=== PATIENT | male | born 1945 | race Caucasian/White ===

== ENCOUNTER 2018-02-24 20:04 | Emergency (ER) | payer BC, OTHER ==
[2018-02-24 20:15] VITALS: BP 170/89; PULSE 78; TEMP 98.1; BMI 29.9
--- NOTE | 2018-02-24 20:19 | PDOC ---
History of Present Illness - General History Source: Patient Exam Limitations: No Limitations <Radha Mann Khushi - Last Filed: 02/24/18 20:29> - General History Source: Patient Exam Limitations: No Limitations - History of Present Illness Initial Comments: 02/24/18 20:30 The patient is a 72 year old male with no significant past medical history who presents to the ED with rash since earlier today. Patient states he developed pain to his right upper back on . Since then he states his symptoms progressively worsened and he developed a rash on his right upper back earlier today. Denies fever or chills. Denies any other symptoms. PAST MEDICAL HISTORY: no significant history PAST SURGICAL HISTORY: no significant history FAMILY HISTORY: no pertinent history SOCIAL HISTORY: Pt lives with family and is employed. MEDICATIONS: reviewed ALLERGIES: As per nursing notes General: No fevers or chills, no weakness, no weight loss HEENT: No change in vision. No sore throat,. No ear pain CardioVascular: No chest pain or shortness of breath Respiratory:No cough, or wheezing. Gastrointestinal: no nausea, vomiting, diarrhea or constipation, No rectal bleeding Genitourinary: No dysuria, hematuria, or frequency Musculoskeletal: + upper back pain. No joint or muscle swelling Neurologic: No headache, vertigo, dizziness or loss of consciousness Psychiatric: nor depression Skin: + rash. No easy bruising Endocrine: no increased thirst or abnormal weight change Allergic: no skin or latex allergy All other systems reviewed and normal GENERAL: The patient is awake, alert, and fully oriented, in no acute distress. HEAD: Normal with no signs of trauma. EYES: Pupils equal, round and reactive to light, extraocular movements intact, sclera anicteric, conjunctiva clear. EXTREMITIES: Normal range of motion, no edema. NEUROLOGICAL: Normal speech, normal gait. PSYCH: Normal mood, normal affect. SKIN: Right upper back; dermatomal distribution consistent with shingles no evidence of secondary infection. <Paresh Garcia - Last Filed: 02/24/18 20:31> - General Chief Complaint: Pain Stated Complaint: SHINGLES Time Seen by Provider: 02/24/18 20:19 Past History - Past Medical History Anemia: No Asthma: No Cardiac Disorders: No CVA: No COPD: No Diabetes: No Thyroid Disease: No - Surgical History Orthopedic Surgery: No - Suicide/Smoking/Psychosocial Hx Smoking History: Never smoked Have you smoked in the past 12 months: No Information on smoking cessation initiated: No Hx Alcohol Use: No Drug/Substance Use Hx: No Substance Use Type: None <Radha Mann I - Last Filed: 02/24/18 20:29> <Paresh Garcia - Last Filed: 02/24/18 20:31> - Past Medical History Allergies/Adverse Reactions: Allergies Allergy/AdvReac Type Severity Reaction Status Date / Time No Known Drug Allergies Allergy Verified 02/24/18 20:06 Home Medications: Ambulatory Orders Acyclovir [Zovirax -] 200 mg PO 5XD #50 capsule 02/24/18 *Physical Exam - Vital Signs Last Vital Signs Temp Pulse Resp BP Pulse Ox 98.1 F 78 16 170/89 97 02/24/18 20:09 02/24/18 20:09 02/24/18 20:09 02/24/18 20:09 02/24/18 20:09 <Radha Mann I - Last Filed: 02/24/18 20:29> - Vital Signs Last Vital Signs Temp Pulse Resp BP Pulse Ox 98.1 F 78 16 170/89 97 02/24/18 20:09 02/24/18 20:09 02/24/18 20:09 02/24/18 20:09 02/24/18 20:09 <Paresh Garcia - Last Filed: 02/24/18 20:31> *DC/Admit/Observation/Transfer - Discharge Dispostion Decision to Admit order: No <Radha Mann I - Last Filed: 02/24/18 20:29> - Attestations Scribe Attestion: 02/24/18 20:30 Documentation prepared by Paresh Garcia, acting as medical case manager for Radha Mann MD <Paresh Garcia - Last Filed: 02/24/18 20:31> Diagnosis at time of Disposition: Shingles Qualifiers: Herpes zoster complications: without complications Qualified Code(s): B02.9 - Zoster without complications - Discharge Dispostion Disposition: HOME Condition at time of disposition: Stable - Prescriptions Prescriptions: Acyclovir [Zovirax -] 200 mg PO 5XD #50 capsule - Referrals Referrals: Astrid Banks MD [Primary Care Provider] - - Patient Instructions Additional Instructions: Take acyclovir 5 times a day for 10 days. Return to the emergency department immediately with ANY new, persistent or worsening symptoms. Continue any medications as previously prescribed by your physician. You should follow up with your primary doctor as soon as possible regarding today's emergency department visit. . Please make sure your doctor reviews the results of your emergency evaluation. Thank you for coming to the Emergency Department today for your care. It was a pleasure to see you today. Please note that your evaluation is INCOMPLETE until you follow-up with your doctor. - Post Discharge Activity
[2018-02-24] MEDS ORDERED: ACYCLOVIR 200 MG CAPSULE PO ONE (20:29)
[2018-02-24] MEDS ORDERED: ACYCLOVIR 400 MG TABLET ONE ×2 (21:02→21:04)
[2018-02-24] MEDS ORDERED: ACYCLOVIR 400 MG TABLET PO ONE (21:04)
== END 2018-02-24 21:11 | disposition home or self-care (01) ==
LOC: FER 20:04
DX: B02.9 Zoster without complications (principal)
CPT/HCPCS: 99281-25

== ENCOUNTER 2018-10-25 06:35 | Day surgery (SDC) | payer BC, OTHER ==
[2018-10-24 14:34] VITALS: BMI 32.5
[2018-10-25 08:34] VITALS: TEMP 97.5
[2018-10-25 09:17] VITALS: BP 136/75; PULSE 69
--- NOTE | 2018-10-28 17:11 | PATH ---
Surgical Pathology Report Patient Name: LISSETTE WARD [facility]. Rec. #: [id number] /Age/Gender: 1945 (Age: 73) / M Account: [id number] Location: [facility]-ENDOSCOPY Taken: 10/25/2018 Received: 10/25/2018 Reported: 10/28/2018 Physicians: Anu Claudio M.D. Specimen(s) Received A: PROXIMAL TRANSVERSE COLON B: CECAL POLYPS Clinical History Change in bowel habits, screening Postoperative diagnosis: Diverticulosis, polyps Final Diagnosis A. PROXIMAL TRANSVERSE COLON, POLYP, BIOPSY: POLYPOID COLONIC MUCOSA WITH MARKED INTRAEPITHELIAL AND LAMINA PROPRIA EOSINOPHILIC INFILTRATE (UP TO 100 EOSINOPHILS/HPF), INCLUDING FOCAL EOSINOPHILIC MICROABSCESSES. SEE COMMENT. B. CECAL POLYPS, BIOPSY: HYPERPLASTIC POLYP. POLYPOID COLONIC MUCOSA WITH MARKED INTRAEPITHELIAL AND LAMINA PROPRIA EOSINOPHILIC INFILTRATE (UP TO 130 EOSINOPHILS/HPF), INCLUDING FOCAL EOSINOPHILIC MICROABSCESSES. SEE COMMENT. Comment: There are increased intraepithelial and lamina propria eosinophils (up to 100 (A) and 130 (B) eosinophils/HPF) including focal microabscesses. 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 This finding is non-specific, Differential diagnoses include: parasitic infection, food allergy, medication injury, Crohn's disease, and connective tissue disorders. Suggest clinical, endoscopic, and serologic correlation. Electronically Signed Sheron Mcclure M.D. Gross Description A. Received in formalin, labeled "biopsy proximal transverse colon polyp" are 2 gibbs, irregular portions of soft tissue measuring 0.2 and 0.4 cm. in greatest dimension. The specimens are submitted in toto in one cassette. B. Received in formalin, labeled "biopsy cecal polyps" are 5 gibbs, irregular portions of soft tissue ranging from 0.1-0.4 cm. in greatest dimension. The specimens are submitted in toto in one cassette. 10/25/201810/25/2018
== END 2018-10-25 09:15 | disposition home or self-care (01) ==
LOC: JASU-ENDO 06:35
PROVIDERS: ATTEND Internal Medicine Gastroenterology
PROC: 0DBL8ZX Excision of Transverse Colon, Via Natural or Artificial Opening Endoscopic, Diagnostic (ICD-10-PCS; 2018-10-25)
PROC: 0DBH8ZX Excision of Cecum, Via Natural or Artificial Opening Endoscopic, Diagnostic (ICD-10-PCS; principal; 2018-10-25 08:00)
DX: Z12.11 Encounter for screening for malignant neoplasm of colon (principal); D12.0 Benign neoplasm of cecum; D12.3 Benign neoplasm of transverse colon; K57.30 Diverticulosis of large intestine without perforation or abscess without bleeding; K64.8 Other hemorrhoids
CPT/HCPCS: 88305-TC

== ENCOUNTER 2020-02-15 18:03 | Inpatient (IN) | payer BC, OTHER ==
[2020-02-15] MEDS ORDERED: DEXAMETHASONE SOD PHOSPHATE 10 MG/1 ML VIAL IVPUSH ONE (18:48)
[2020-02-15] MEDS ORDERED: DEXAMETHASONE SOD PHOSPHATE 10 MG/1 ML VIAL ONE (19:21)
[2020-02-15 19:41] LABS: BASO % 0.2 % (0-2.0); EOS % 2.4 % (0-4.5); HEMATOCRIT 40.8 % (35.4-49); HEMOGLOBIN 13.6 GM/dL (11.7-16.9); LYMPH % 12.2 % (8-40); MCH 29.7 pg (25.7-33.7); MCHC 33.4 g/dl (32.0-35.9); MEAN PLT VOLUME 8.9 fl (7.5-11.1); MONO % 9.4 % (3.8-10.2); NEUT % 75.8 % (42.8-82.8); PLATELET COUNT 193 K/MM3 (134-434); RBC 4.59 M/mm3 (4.00-5.60); RDW 13.2 % (11.9-15.9); WHITE BLOOD COUNT 10.7 K/mm3 (4.0-10.0)
[2020-02-15 19:43] LABS: VENOUS BASE EXCESS -1.1 mmol/L (-2-2); VENOUS PCO2 50.5 mmHg (38-52); VENOUS PH 7.322 (7.310-7.410)
[2020-02-15 20:02] LABS: POTASSIUM 4.3 mmol/L (3.5-5.1)
[2020-02-15 20:04] LABS: ALBUMIN 3.4 g/dl (3.4-5.0)
[2020-02-15 20:05] LABS: BLOOD UREA NITROGEN 21.2 mg/dL (7-18)
[2020-02-15 20:07] LABS: BILIRUBIN,DIRECT 0.6 mg/dL (0.0-0.2)
[2020-02-15 20:08] LABS: CREATININE 1.4 mg/dL (0.55-1.3)
[2020-02-15 20:09] LABS: TOT PROT 7.5 g/dl (6.4-8.2)
[2020-02-15] MEDS ORDERED: SODIUM CHLORIDE 0.9% 500 ML INFUS.BAG IV ONE (21:21)
[2020-02-15] MEDS ORDERED: ALBUTEROL SO4 HFA INHALER IH PRN (22:36)
[2020-02-15] MEDS ORDERED: AZITHROMYCIN IVPB 500 MG/250 ML BAG IVPB ONE ×2 (23:02→23:31)
[2020-02-15] MEDS ORDERED: CEFTRIAXONE 1 GM in DEXTROSE 5%-WATER - 50 ML IVPB ONE (23:02)
[2020-02-15] MEDS ORDERED: DEXTROSE 5%-NORMAL SALINE 500 ML IV ONE (23:03)
[2020-02-15 23:07] LABS: INR 1.08 (0.83-1.09)
[2020-02-15 23:10] LABS: ACTIVATED PTT 29.3 SECONDS (25.2-36.5)
[2020-02-15] MEDS ORDERED: DEXTROSE 5%-LACTATED RINGERS 1,000 ML IV SCH (23:15)
[2020-02-15] MEDS ORDERED: CEFTRIAXONE 1 GM/50 ML BAG ONE (23:31)
[2020-02-16 00:33] LABS: EPI CELLS 5 /uL (0-25.1); HYALINE CASTS 5 /uL (0-3.1); PH,URINE 5.5 (5.0-8.0); URINE APPEARANCE CLEAR; URINE BACTERIA 26 /uL (0-1359); URINE BILIRUBIN 1+ (NEGATIVE); URINE COLOR DK YELLOW; URINE GLUCOSE (UA) NEGATIVE (NEGATIVE); URINE KETONE TRACE (NEGATIVE); URINE LEUK ESTERASE NEGATIVE (NEGATIVE); URINE NITRITE NEGATIVE (NEGATIVE); URINE PROTEIN 1+ (NEGATIVE); URINE RBC 13 /uL (0-23.9); URINE WBC 6 /uL (0-25.8)
[2020-02-16 07:29] LABS: BASO % 0.1 % (0-2.0); HEMATOCRIT 38.3 % (35.4-49); HEMOGLOBIN 12.8 GM/dL (11.7-16.9); LYMPH % 8.9 % (8-40); MCH 29.2 pg (25.7-33.7); MCHC 33.5 g/dl (32.0-35.9); MEAN CELL VOLUME 87.3 fl (80-96); MEAN PLT VOLUME 8.8 fl (7.5-11.1); MONO % 2.6 % (3.8-10.2); NEUT % 88.4 % (42.8-82.8); PLATELET COUNT 201 K/MM3 (134-434); RBC 4.39 M/mm3 (4.00-5.60); WHITE BLOOD COUNT 6.7 K/mm3 (4.0-10.0)
[2020-02-16 07:35] LABS: POTASSIUM 4.9 mmol/L (3.5-5.1)
[2020-02-16 07:37] LABS: CALCIUM 8.9 mg/dL (8.5-10.1)
[2020-02-16 07:38] LABS: BLOOD UREA NITROGEN 16.8 mg/dL (7-18); MAGNESIUM 2.7 mg/dL (1.8-2.4)
[2020-02-16 07:41] LABS: CREATININE 0.9 mg/dL (0.55-1.3)
[2020-02-16 07:43] LABS: BILIRUBIN,TOTAL 0.6 mg/dL (0.2-1); TOT PROT 7.1 g/dl (6.4-8.2)
[2020-02-16] MEDS ORDERED: DEXAMETHASONE SOD PHOSPHATE 10 MG/1 ML VIAL ONE (09:16)
[2020-02-16] MEDS ORDERED: ENOXAPARIN NA (PORCINE) 40 MG/0.4 ML DISP.SYRIN SQ ONE (09:16)
[2020-02-16] MEDS: ENOXAPARIN NA (PORCINE) 40 MG/0.4 ML DISP.SYRIN SQ SCH (09:32)
[2020-02-16] MEDS: DEXAMETHASONE SOD PHOSPHATE 10 MG/1 ML VIAL IVPUSH SCH (09:32)
[2020-02-16 16:50] VITALS: BMI 29.5
[2020-02-16] MEDS ORDERED: FLU VACCINE (FLULAVAL) PF 60 MCG/0.5 ML SYRINGE 2020-2021 IM ONE (16:50)
[2020-02-16] MEDS: PANTOPRAZOLE 40 MG TABLET PO SCH (17:36)
[2020-02-17] MEDS ORDERED: AZITHROMYCIN IVPB 500 MG/250 ML BAG IVPB SCH (10:00)
[2020-02-17] MEDS ORDERED: CEFTRIAXONE 1 GM in DEXTROSE 5%-WATER - 50 ML IVPB SCH (10:00)
[2020-02-17] MEDS ORDERED: DEXTROSE 5%-WATER - 50 ML IVPB ONE (10:23)
[2020-02-17] MEDS ORDERED: cefTRIAXone SODIUM 1 GM VIAL ONE (10:23)
[2020-02-17] MEDS: ENOXAPARIN NA (PORCINE) 40 MG/0.4 ML DISP.SYRIN SQ SCH (10:32)
[2020-02-17] MEDS: DEXAMETHASONE SOD PHOSPHATE 10 MG/1 ML VIAL IVPUSH SCH (10:32)
[2020-02-17] MEDS: PANTOPRAZOLE 40 MG TABLET PO SCH (10:33)
[2020-02-17] MEDS ORDERED: POLYETHYLENE GLYCOL 3350 119 GM BTL PO PRN (13:20)
[2020-02-17] MEDS: ASCORBIC ACID 500 MG TABLET (FP) PO SCH (21:25)
[2020-02-17] MEDS: FAMOTIDINE 20 MG TABLET PO SCH (21:25)
[2020-02-18] MEDS: ENOXAPARIN NA (PORCINE) 40 MG/0.4 ML DISP.SYRIN SQ SCH (10:09)
[2020-02-18] MEDS: DEXAMETHASONE SOD PHOSPHATE 10 MG/1 ML VIAL IVPUSH SCH (10:09)
[2020-02-18] MEDS: ZINC SULFATE 220 MG CAPSULE (FP) PO SCH (10:09)
[2020-02-18] MEDS: CHOLECALCIFEROL (VIT D3) 1,000 UNIT (25 MCG) TABLET PO SCH (10:10)
[2020-02-18] MEDS: PANTOPRAZOLE 40 MG TABLET PO SCH (10:10)
[2020-02-18] MEDS: FAMOTIDINE 20 MG TABLET PO SCH ×2 (10:10→21:48)
[2020-02-18] MEDS: ASCORBIC ACID 500 MG TABLET (FP) PO SCH ×2 (10:10→21:48)
[2020-02-18 17:03] LABS: POTASSIUM 4.7 mmol/L (3.5-5.1)
[2020-02-18 17:06] LABS: ALBUMIN 2.8 g/dl (3.4-5.0); BLOOD UREA NITROGEN 17.1 mg/dL (7-18)
[2020-02-18 17:09] LABS: CREATININE 0.9 mg/dL (0.55-1.3)
[2020-02-18 17:10] LABS: BILIRUBIN,TOTAL 0.4 mg/dL (0.2-1)
[2020-02-18 17:12] LABS: TOT PROT 6.5 g/dl (6.4-8.2)
[2020-02-18 17:58] LABS: HEMATOCRIT 37.4 % (35.4-49); HEMOGLOBIN 12.4 GM/dL (11.7-16.9); MCH 29.4 pg (25.7-33.7); MCHC 33.2 g/dl (32.0-35.9); MEAN CELL VOLUME 88.5 fl (80-96); MEAN PLT VOLUME 8.5 fl (7.5-11.1); PLATELET COUNT 266 K/MM3 (134-434); RBC 4.23 M/mm3 (4.00-5.60); RDW 13.1 % (11.9-15.9)
[2020-02-18] MEDS ORDERED: REMDESIVIR 200 MG in SODIUM CHLORIDE 210 ML IVPB ONE (19:00)
[2020-02-19 07:03] LABS: HEMATOCRIT 35.9 % (35.4-49); HEMOGLOBIN 11.7 GM/dL (11.7-16.9); MCH 28.7 pg (25.7-33.7); MCHC 32.8 g/dl (32.0-35.9); MEAN CELL VOLUME 87.6 fl (80-96); MEAN PLT VOLUME 8.6 fl (7.5-11.1); PLATELET COUNT 259 K/MM3 (134-434); RBC 4.09 M/mm3 (4.00-5.60); RDW 13.3 % (11.9-15.9); WHITE BLOOD COUNT 11.5 K/mm3 (4.0-10.0)
[2020-02-19 07:30] LABS: CALCIUM 8.8 mg/dL (8.5-10.1)
[2020-02-19 07:31] LABS: ALBUMIN 2.6 g/dl (3.4-5.0); BLOOD UREA NITROGEN 18.8 mg/dL (7-18)
[2020-02-19 07:34] LABS: CREATININE 0.7 mg/dL (0.55-1.3)
[2020-02-19 07:36] LABS: BILIRUBIN,TOTAL 0.4 mg/dL (0.2-1); TOT PROT 5.8 g/dl (6.4-8.2)
[2020-02-19] MEDS: DEXAMETHASONE SOD PHOSPHATE 10 MG/1 ML VIAL IVPUSH SCH (09:06)
[2020-02-19] MEDS: ENOXAPARIN NA (PORCINE) 40 MG/0.4 ML DISP.SYRIN SQ SCH (09:07)
[2020-02-19] MEDS: ASCORBIC ACID 500 MG TABLET (FP) PO SCH ×2 (09:07→21:45)
[2020-02-19] MEDS: ZINC SULFATE 220 MG CAPSULE (FP) PO SCH (09:07)
[2020-02-19] MEDS: FAMOTIDINE 20 MG TABLET PO SCH ×2 (09:07→21:45)
[2020-02-19] MEDS: PANTOPRAZOLE 40 MG TABLET PO SCH (09:07)
[2020-02-19] MEDS: CHOLECALCIFEROL (VIT D3) 1,000 UNIT (25 MCG) TABLET PO SCH (09:08)
[2020-02-19] MEDS: REMDESIVIR 100 MG in SODIUM CHLORIDE 230 ML IVPB SCH (17:39)
[2020-02-20 07:02] LABS: POTASSIUM 4.8 mmol/L (3.5-5.1)
[2020-02-20 07:07] LABS: ALBUMIN 2.6 g/dl (3.4-5.0); BLOOD UREA NITROGEN 17.7 mg/dL (7-18); CALCIUM 8.4 mg/dL (8.5-10.1)
[2020-02-20 07:11] LABS: BILIRUBIN,TOTAL 0.5 mg/dL (0.2-1); CREATININE 0.9 mg/dL (0.55-1.3)
[2020-02-20 07:12] LABS: TOT PROT 6.3 g/dl (6.4-8.2)
[2020-02-20] MEDS: ASCORBIC ACID 500 MG TABLET (FP) PO SCH ×2 (09:45→21:41)
[2020-02-20] MEDS: CHOLECALCIFEROL (VIT D3) 1,000 UNIT (25 MCG) TABLET PO SCH (09:45)
[2020-02-20] MEDS: ENOXAPARIN NA (PORCINE) 40 MG/0.4 ML DISP.SYRIN SQ SCH (09:45)
[2020-02-20] MEDS: ZINC SULFATE 220 MG CAPSULE (FP) PO SCH (09:45)
[2020-02-20] MEDS: FAMOTIDINE 20 MG TABLET PO SCH ×2 (09:45→21:41)
[2020-02-20] MEDS: PANTOPRAZOLE 40 MG TABLET PO SCH (09:45)
[2020-02-20] MEDS: DEXAMETHASONE SOD PHOSPHATE 10 MG/1 ML VIAL IVPUSH SCH (09:46)
[2020-02-20] MEDS ORDERED: PT OWN MED DRAWER 7, Y5N ONE (16:55)
[2020-02-20] MEDS: REMDESIVIR 100 MG in SODIUM CHLORIDE 230 ML IVPB SCH (18:07)
[2020-02-21 07:49] LABS: POTASSIUM 4.5 mmol/L (3.5-5.1)
[2020-02-21 07:52] LABS: CALCIUM 8.5 mg/dL (8.5-10.1)
[2020-02-21 07:53] LABS: ALBUMIN 2.6 g/dl (3.4-5.0); BLOOD UREA NITROGEN 20.7 mg/dL (7-18)
[2020-02-21 07:56] LABS: CREATININE 0.9 mg/dL (0.55-1.3)
[2020-02-21 07:57] LABS: BILIRUBIN,TOTAL 0.8 mg/dL (0.2-1)
[2020-02-21] MEDS ORDERED: PT OWN MED DRAWER 7, Y5N ONE ×2 (08:57→14:56)
[2020-02-21] MEDS: ZINC SULFATE 220 MG CAPSULE (FP) PO SCH (09:36)
[2020-02-21] MEDS: FAMOTIDINE 20 MG TABLET PO SCH ×2 (09:36→21:20)
[2020-02-21] MEDS: ENOXAPARIN NA (PORCINE) 40 MG/0.4 ML DISP.SYRIN SQ SCH (09:36)
[2020-02-21] MEDS: DEXAMETHASONE SOD PHOSPHATE 10 MG/1 ML VIAL IVPUSH SCH (09:36)
[2020-02-21] MEDS: ASCORBIC ACID 500 MG TABLET (FP) PO SCH ×2 (09:36→21:20)
[2020-02-21] MEDS: PANTOPRAZOLE 40 MG TABLET PO SCH (09:36)
[2020-02-21] MEDS: CHOLECALCIFEROL (VIT D3) 1,000 UNIT (25 MCG) TABLET PO SCH (09:37)
[2020-02-21] MEDS: REMDESIVIR 100 MG in SODIUM CHLORIDE 230 ML IVPB SCH (17:29)
[2020-02-22 08:07] LABS: POTASSIUM 4.3 mmol/L (3.5-5.1)
[2020-02-22 08:50] LABS: CALCIUM 8.7 mg/dL (8.5-10.1)
[2020-02-22 08:51] LABS: ALBUMIN 2.8 g/dl (3.4-5.0); BLOOD UREA NITROGEN 21.9 mg/dL (7-18)
[2020-02-22 08:54] LABS: CREATININE 0.9 mg/dL (0.55-1.3)
[2020-02-22 08:55] LABS: BILIRUBIN,TOTAL 0.4 mg/dL (0.2-1); TOT PROT 5.8 g/dl (6.4-8.2)
[2020-02-22] MEDS: DEXAMETHASONE SOD PHOSPHATE 10 MG/1 ML VIAL IVPUSH SCH (10:11)
[2020-02-22] MEDS: CHOLECALCIFEROL (VIT D3) 1,000 UNIT (25 MCG) TABLET PO SCH (10:11)
[2020-02-22] MEDS: ZINC SULFATE 220 MG CAPSULE (FP) PO SCH (10:12)
[2020-02-22] MEDS: APIXABAN 5 MG TABLET PO SCH ×2 (10:12→21:16)
[2020-02-22] MEDS: ASCORBIC ACID 500 MG TABLET (FP) PO SCH ×2 (10:12→21:16)
[2020-02-22] MEDS: FAMOTIDINE 20 MG TABLET PO SCH ×2 (10:12→21:16)
[2020-02-22] MEDS: PANTOPRAZOLE 40 MG TABLET PO SCH (10:12)
[2020-02-22] MEDS: REMDESIVIR 100 MG in SODIUM CHLORIDE 230 ML IVPB SCH (17:30)
[2020-02-23 07:25] LABS: CALCIUM 7.9 mg/dL (8.5-10.1); POTASSIUM 4.7 mmol/L (3.5-5.1)
[2020-02-23 07:26] LABS: ALBUMIN 2.8 g/dl (3.4-5.0); BLOOD UREA NITROGEN 21.3 mg/dL (7-18)
[2020-02-23 07:30] LABS: BILIRUBIN,TOTAL 0.5 mg/dL (0.2-1)
[2020-02-23 07:31] LABS: TOT PROT 6.3 g/dl (6.4-8.2)
[2020-02-23 09:42] VITALS: PULSE 89
[2020-02-23] MEDS: PANTOPRAZOLE 40 MG TABLET PO SCH (09:43)
[2020-02-23] MEDS: ASCORBIC ACID 500 MG TABLET (FP) PO SCH (09:43)
[2020-02-23] MEDS: APIXABAN 5 MG TABLET PO SCH (09:43)
[2020-02-23] MEDS: ZINC SULFATE 220 MG CAPSULE (FP) PO SCH (09:43)
[2020-02-23] MEDS: DEXAMETHASONE SOD PHOSPHATE 10 MG/1 ML VIAL IVPUSH SCH (09:46)
[2020-02-23] MEDS: CHOLECALCIFEROL (VIT D3) 1,000 UNIT (25 MCG) TABLET PO SCH (09:47)
[2020-02-23] MEDS: FAMOTIDINE 20 MG TABLET PO SCH (12:24)
[2020-02-23 13:29] VITALS: BP 142/84; TEMP 97.9
== END 2020-02-23 15:27 | disposition home or self-care (01) | DRG 177 ==
LOC: JER 18:03 → JERBED 21:20 → J4S 02-16 15:02
PROVIDERS: ADMIT Internal Medicine; ATTEND Internal Medicine
PROC: 8E0ZXY6 Isolation (ICD-10-PCS; 2020-02-15)
PROC: XW033E5 Introduction of Remdesivir Anti-infective into Peripheral Vein, Percutaneous Approach, New Technology Group 5 (ICD-10-PCS; principal; 2020-02-18)
DX: U07.1 COVID-19 (principal); J12.89 Other viral pneumonia; J96.01 Acute respiratory failure with hypoxia; N17.9 Acute kidney failure, unspecified; I45.10 Unspecified right bundle-branch block; N40.0 Benign prostatic hyperplasia without lower urinary tract symptoms; K57.90 Diverticulosis of intestine, part unspecified, without perforation or abscess without bleeding; I10 Essential (primary) hypertension; E78.00 Pure hypercholesterolemia, unspecified; J45.909 Unspecified asthma, uncomplicated
CPT/HCPCS: 36415; 71045-TC-FY; 80053; 81003; 82248; 82550; 82728; 82803; 83036; 83605; 83615; 83735; 84484; 85025; 85027; 85379; 85610; 85730; 86140; 86850; 86900; 86901; 87040; 87070; 87086; 87205; 87804; 87899; 93005; 93010; 94761; 99285-25; C9803; J1100; U0003

== ENCOUNTER 2023-01-09 12:01 | Inpatient (IN) | payer BC, MEDICARE ==
[2023-01-09 12:15] VITALS: BMI 31.9
[2023-01-09 13:10] LABS: INR 1.58 (0.83-1.09); PROTHROMBIN TIME (PATIENT) 18.2 SEC (9.7-13.0)
[2023-01-09 13:11] LABS: HEMATOCRIT 17.2 % (35.4-49); MCHC 31.2 g/dl (32.0-35.9); MEAN PLT VOLUME 8.9 fl (7.5-11.1); PLATELET COUNT 159.8 10^3/uL (134-434); RBC 2.33 10^6/uL (4.00-5.60); RDW 20.2 % (11.9-15.9); WHITE BLOOD COUNT 7.9 10^3/uL (4.0-10.8)
[2023-01-09 13:13] LABS: ALBUMIN 3.9 g/dl (3.4-5.0); BILIRUBIN,TOTAL 0.6 mg/dl (0.2-1); BLOOD UREA NITROGEN 19.6 mg/dl (7-18); CALCIUM 8.5 mg/dl (8.5-10.1); CREATININE 1.5 mg/dl (0.6-1.3); POTASSIUM 4.2 mmol/L (3.5-5.1); SGOT/AST 16.5 U/L (15-37); SGPT/ALT 13.2 U/L (7-52); TOT PROT 6.3 g/dl (6.4-8.2)
[2023-01-09 13:16] LABS: HEMOGLOBIN 5.4 G/dL (11.7-16.9)
[2023-01-09] MEDS: LACTATED RINGERS SOLUTION 1,000 ML/1,000 ML INFUS.BAG IV STA ×2 (13:19→13:28)
[2023-01-09 13:41] LABS: PLATELET ESTIMATE ADEQUATE
[2023-01-09 16:19] LABS: N-TERMINAL BNP 676.6 pg/ml (5-450)
[2023-01-09 18:31] VITALS: RESP 18
[2023-01-09] MEDS: PANTOPRAZOLE SODIUM 40 MG VIAL IVPUSH SCH (21:19)
[2023-01-09] MEDS: ATORVASTATIN CA 40 MG TABLET (FP) PO SCH (21:19)
[2023-01-10] MEDS: LACTATED RINGERS SOLUTION 1,000 ML/1,000 ML INFUS.BAG IV SCH ×2 (04:04→16:15)
[2023-01-10 08:22] LABS: HEMATOCRIT 21.8 % (35.4-49); MCH 24.4 pg (25.7-33.7); MCHC 31.2 g/dl (32.0-35.9); MEAN CELL VOLUME 78.1 fl (80-96); MEAN PLT VOLUME 8.7 fl (7.5-11.1); PLATELET COUNT 124.5 10^3/uL (134-434); RBC 2.79 10^6/uL (4.00-5.60); RDW 21.6 % (11.9-15.9); WHITE BLOOD COUNT 6.7 10^3/uL (4.0-10.8)
[2023-01-10 08:33] LABS: ALBUMIN 3.6 g/dl (3.4-5.0); BILIRUBIN,TOTAL 1.2 mg/dl (0.2-1); BLOOD UREA NITROGEN 15.8 mg/dl (7-18); CALCIUM 8.3 mg/dl (8.5-10.1); CREATININE 1.1 mg/dl (0.6-1.3); PHOSPHOROUS 3.03 (2.5-4.9); POTASSIUM 3.8 mmol/L (3.5-5.1); SGOT/AST 15.2 U/L (15-37); SGPT/ALT 12.2 U/L (7-52); TOT PROT 5.8 g/dl (6.4-8.2)
[2023-01-10 08:36] LABS: HEMOGLOBIN 6.8 G/dL (11.7-16.9)
[2023-01-10] MEDS: PANTOPRAZOLE SODIUM 40 MG VIAL IVPUSH SCH ×2 (09:44→21:13)
[2023-01-10 18:04] LABS: HEMOGLOBIN 7.7 G/dL (11.7-16.9); MCH 24.5 pg (25.7-33.7); MEAN CELL VOLUME 76.8 fl (80-96); MEAN PLT VOLUME 8.3 fl (7.5-11.1); PLATELET COUNT 128.7 10^3/uL (134-434); RBC 3.13 10^6/uL (4.00-5.60); RDW 23.9 % (11.9-15.9); WHITE BLOOD COUNT 7.3 10^3/uL (4.0-10.8)
[2023-01-10] MEDS: CLOPIDOGREL BISULFATE 75 MG TABLET (FP) PO SCH (18:22)
[2023-01-10] MEDS: ATORVASTATIN CA 40 MG TABLET (FP) PO SCH (21:13)
[2023-01-11 08:25] LABS: HEMATOCRIT 23.9 % (35.4-49); HEMOGLOBIN 7.7 G/dL (11.7-16.9); MCH 24.3 pg (25.7-33.7); MCHC 32.1 g/dl (32.0-35.9); MEAN CELL VOLUME 75.9 fl (80-96); PLATELET COUNT 129.5 10^3/uL (134-434); RBC 3.15 10^6/uL (4.00-5.60); RDW 22.9 % (11.9-15.9); WHITE BLOOD COUNT 7.5 10^3/uL (4.0-10.8)
[2023-01-11 09:24] LABS: CALCIUM 8.2 mg/dl (8.5-10.1); POTASSIUM 3.9 mmol/L (3.5-5.1)
[2023-01-11] MEDS: PANTOPRAZOLE SODIUM 40 MG VIAL IVPUSH SCH (09:25)
[2023-01-11] MEDS: CLOPIDOGREL BISULFATE 75 MG TABLET (FP) PO SCH (09:25)
[2023-01-11] MEDS ORDERED: METOPROLOL TARTRATE 25 MG TABLET (FP) PO SCH (10:00)
[2023-01-11 14:09] VITALS: BP 131/67; PULSE 98; TEMP 98.4
== END 2023-01-11 16:10 | disposition home or self-care (01) | DRG 812 ==
LOC: FER 12:01 → FM/S 14:10
PROVIDERS: ADMIT Internal Medicine; ATTEND Internal Medicine
PROC: 30233N1 Transfusion of Nonautologous Red Blood Cells into Peripheral Vein, Percutaneous Approach (ICD-10-PCS; principal; 2023-01-10)
DX: D64.9 Anemia, unspecified (principal); I25.10 Atherosclerotic heart disease of native coronary artery without angina pectoris; R55 Syncope and collapse; Z95.5 Presence of coronary angioplasty implant and graft; N40.0 Benign prostatic hyperplasia without lower urinary tract symptoms; E78.5 Hyperlipidemia, unspecified; R07.9 Chest pain, unspecified
CPT/HCPCS: 0241U-QW; 36415; 36430; 71045-TC-FY; 80048; 80053; 81003; 81015; 82607; 82728; 82746; 83010; 83540; 83550; 83735; 83880; 84100; 84439; 84443; 84484; 85025; 85027; 85045; 85384; 85610; 85730; 86922; 87086; 93005; 99285-25; P9058

== ENCOUNTER 2023-02-08 05:13 | Day surgery (SDC) | payer BC ==
[2023-02-05 16:18] VITALS: BMI 29.9
[2023-02-08 13:20] VITALS: TEMP 97.1
[2023-02-08 14:04] VITALS: BP 150/81; PULSE 67; RESP 17
== END 2023-02-08 14:05 | disposition home or self-care (01) ==
LOC: JASU-ENDO 05:13
PROVIDERS: ATTEND Internal Medicine Gastroenterology
PROC: 0DJ08ZZ Inspection of Upper Intestinal Tract, Via Natural or Artificial Opening Endoscopic (ICD-10-PCS; 2023-02-08)
PROC: 0DJD8ZZ Inspection of Lower Intestinal Tract, Via Natural or Artificial Opening Endoscopic (ICD-10-PCS; principal; 2023-02-08 12:45)
DX: D50.9 Iron deficiency anemia, unspecified (principal); K63.5 Polyp of colon; K57.30 Diverticulosis of large intestine without perforation or abscess without bleeding; I10 Essential (primary) hypertension

== ENCOUNTER 2023-12-18 07:37 | Inpatient (IN) | payer BC, OTHER ==
[2023-12-18 08:39] LABS: BASO % 0.5 % (0-2.0); HEMATOCRIT 25.5 % (35.4-49); HEMOGLOBIN 8.5 GM/dL (11.7-16.9); LYMPH % 17.9 % (8-40); MCH 30.2 pg (25.7-33.7); MCHC 33.3 g/dl (32.0-35.9); MEAN CELL VOLUME 90.7 fl (80-96); MEAN PLT VOLUME 7.9 fl (7.5-11.1); MONO % 8.1 % (3.8-10.2); NEUT % 57.5 % (42.8-82.8); PLATELET COUNT 157 10^3/uL (134-434); RBC 2.82 M/mm3 (4.00-5.60); RDW 13.9 % (11.9-15.9); WHITE BLOOD COUNT 6.9 K/mm3 (4.0-10.0)
[2023-12-18] MEDS: SODIUM CHLORIDE 0.9% 500 ML INFUS.BAG IV ONE (08:39)
[2023-12-18 08:53] LABS: POTASSIUM 4.1 mmol/L (3.5-5.1)
[2023-12-18 08:55] LABS: ALBUMIN 3.2 g/dl (3.4-5.0); BLOOD UREA NITROGEN 13.7 mg/dL (7-18); CALCIUM 8.6 mg/dL (8.5-10.1); MAGNESIUM 2.2 mg/dL (1.8-2.4)
[2023-12-18 08:58] LABS: CREATININE 0.9 mg/dL (0.55-1.3)
[2023-12-18 09:00] LABS: BILIRUBIN,TOTAL 0.3 mg/dL (0.2-1); TOT PROT 5.8 g/dl (6.4-8.2)
[2023-12-18 09:32] LABS: BILIRUBIN,DIRECT 0.1 mg/dL (0.0-0.2)
[2023-12-18 09:57] LABS: INR 0.99 (0.83-1.09); PROTHROMBIN TIME (PATIENT) 11.2 SEC (9.7-13.0)
[2023-12-18 09:59] LABS: ACTIVATED PTT 26.7 SECONDS (25.2-36.5)
[2023-12-18 12:35] LABS: HIV INTERPRETATION NEGATIVE (NEGATIVE)
[2023-12-18] MEDS: PANTOPRAZOLE SODIUM 40 MG VIAL IVPUSH SCH (12:46)
[2023-12-18] MEDS: DEXTROSE 5%-NORMAL SALINE 1,000 ML IV SCH (12:59)
[2023-12-18 13:53] VITALS: BMI 30.9
[2023-12-19] MEDS: ACETAMINOPHEN 1000 MG/100 ML BAG IVPB ONE (06:11)
[2023-12-19] MEDS: LISINOPRIL 20 MG TABLET PO SCH (09:54)
[2023-12-19] MEDS: METOPROLOL TARTRATE 50 MG TABLET (FP) PO SCH (09:54)
[2023-12-19 13:09] LABS: BASO % 0.8 % (0-2.0); EOS % 12.7 % (0-4.5); HEMATOCRIT 19.5 % (35.4-49); LYMPH % 17.3 % (8-40); MCH 30.4 pg (25.7-33.7); MCHC 32.9 g/dl (32.0-35.9); MEAN CELL VOLUME 92.4 fl (80-96); MEAN PLT VOLUME 7.8 fl (7.5-11.1); MONO % 7.2 % (3.8-10.2); PLATELET COUNT 146 10^3/uL (134-434); RBC 2.11 M/mm3 (4.00-5.60); RDW 13.9 % (11.9-15.9); WHITE BLOOD COUNT 5.9 K/mm3 (4.0-10.0)
[2023-12-19 13:12] LABS: HEMOGLOBIN 6.4 GM/dL (11.7-16.9)
[2023-12-19 13:16] LABS: INR 1.04 (0.83-1.09); PROTHROMBIN TIME (PATIENT) 11.7 SEC (9.7-13.0)
[2023-12-19] MEDS: PANTOPRAZOLE SODIUM 40 MG VIAL IVPUSH SCH (14:41)
[2023-12-19] MEDS: PEG 3350/NA SULF BICARB CL/KCL 4000 ML SOLN.RECON PO ONE (17:58)
[2023-12-19] MEDS: BISACODYL 5 MG TABLET.DR (FP) PO ONE (17:58)
[2023-12-19] MEDS: ONDANSETRON 4 MG/2 ML VIAL IVPUSH SCH (19:37)
[2023-12-19] MEDS: DEXTROSE 5%-NORMAL SALINE 1,000 ML IV SCH (19:59)
[2023-12-19] MEDS: CHLORHEXIDINE GLUCONATE 4% CLEANSER FOR DECOLONIZATION TP SCH (21:29)
[2023-12-19] MEDS: MUPIROCIN 2% TOPICAL OINTMENT FOR DECOLONIZATION NS SCH (21:29)
[2023-12-19] MEDS ORDERED: ATORVASTATIN CA 40 MG TABLET (FP) PO SCH (22:00)
[2023-12-20 00:03] LABS: BASO % 0.5 % (0-2.0); EOS % 8.9 % (0-4.5); LYMPH % 18.6 % (8-40); MCH 29.7 pg (25.7-33.7); MCHC 33.3 g/dl (32.0-35.9); MEAN CELL VOLUME 89.1 fl (80-96); MEAN PLT VOLUME 8.1 fl (7.5-11.1); MONO % 6.7 % (3.8-10.2); NEUT % 65.3 % (42.8-82.8); PLATELET COUNT 142 10^3/uL (134-434); RBC 3.03 M/mm3 (4.00-5.60); RDW 14.4 % (11.9-15.9); WHITE BLOOD COUNT 7.7 K/mm3 (4.0-10.0)
[2023-12-20 00:50] LABS: CALCIUM 8.3 mg/dL (8.5-10.1)
[2023-12-20 00:51] LABS: BLOOD UREA NITROGEN 10.7 mg/dL (7-18)
[2023-12-20 00:53] LABS: CREATININE 0.8 mg/dL (0.55-1.3)
[2023-12-20 07:48] LABS: BASO % 0.6 % (0-2.0); EOS % 11.3 % (0-4.5); HEMATOCRIT 23.9 % (35.4-49); HEMOGLOBIN 8.2 GM/dL (11.7-16.9); LYMPH % 19.7 % (8-40); MCH 30.3 pg (25.7-33.7); MCHC 34.2 g/dl (32.0-35.9); MEAN CELL VOLUME 88.5 fl (80-96); MONO % 7.6 % (3.8-10.2); NEUT % 60.8 % (42.8-82.8); PLATELET COUNT 132 10^3/uL (134-434); RDW 14.9 % (11.9-15.9); WHITE BLOOD COUNT 6.4 K/mm3 (4.0-10.0)
[2023-12-20 07:50] LABS: INR 1.07 (0.83-1.09); PROTHROMBIN TIME (PATIENT) 12.1 SEC (9.7-13.0)
[2023-12-20 08:00] LABS: POTASSIUM 3.6 mmol/L (3.5-5.1)
[2023-12-20 08:08] LABS: CALCIUM 8.5 mg/dL (8.5-10.1)
[2023-12-20 08:12] LABS: CREATININE 0.8 mg/dL (0.55-1.3)
[2023-12-20] MEDS: METOPROLOL TARTRATE 50 MG TABLET (FP) PO SCH (10:00)
[2023-12-21 07:46] LABS: BASO % 0.6 % (0-2.0); HEMATOCRIT 23.9 % (35.4-49); HEMOGLOBIN 8.1 GM/dL (11.7-16.9); LYMPH % 18.3 % (8-40); MCH 30.4 pg (25.7-33.7); MCHC 33.7 g/dl (32.0-35.9); MEAN CELL VOLUME 90.2 fl (80-96); MEAN PLT VOLUME 7.7 fl (7.5-11.1); MONO % 8.4 % (3.8-10.2); NEUT % 61.7 % (42.8-82.8); PLATELET COUNT 148 10^3/uL (134-434); RBC 2.65 M/mm3 (4.00-5.60); WHITE BLOOD COUNT 5.2 K/mm3 (4.0-10.0)
[2023-12-21 08:27] LABS: POTASSIUM 3.8 mmol/L (3.5-5.1)
[2023-12-21 08:29] LABS: CALCIUM 8.3 mg/dL (8.5-10.1)
[2023-12-21 08:30] LABS: ALBUMIN 2.9 g/dl (3.4-5.0); BLOOD UREA NITROGEN 8.3 mg/dL (7-18)
[2023-12-21 08:34] LABS: CREATININE 0.9 mg/dL (0.55-1.3); PHOSPHOROUS 3.1 mg/dL (2.5-4.9)
[2023-12-21 08:35] LABS: BILIRUBIN,TOTAL 0.9 mg/dL (0.2-1); TOT PROT 5.2 g/dl (6.4-8.2)
[2023-12-21] MEDS ORDERED: MUPIROCIN 2% TOPICAL OINTMENT FOR DECOLONIZATION NS SCH (22:00)
[2023-12-21] MEDS ORDERED: CHLORHEXIDINE GLUCONATE 4% CLEANSER FOR DECOLONIZATION TP SCH (22:00)
[2023-12-22 06:46] VITALS: TEMP 98.2
[2023-12-22 09:27] LABS: BASO % 0.5 % (0-2.0); EOS % 12.4 % (0-4.5); HEMATOCRIT 27.6 % (35.4-49); HEMOGLOBIN 9.3 GM/dL (11.7-16.9); LYMPH % 16.5 % (8-40); MCH 30.5 pg (25.7-33.7); MCHC 33.6 g/dl (32.0-35.9); MEAN CELL VOLUME 90.8 fl (80-96); MEAN PLT VOLUME 7.9 fl (7.5-11.1); MONO % 7.6 % (3.8-10.2); PLATELET COUNT 209 10^3/uL (134-434); RBC 3.04 M/mm3 (4.00-5.60); RDW 14.6 % (11.9-15.9); WHITE BLOOD COUNT 7.1 K/mm3 (4.0-10.0)
[2023-12-22 09:54] VITALS: BP 118/68; PULSE 100; RESP 16
[2023-12-22] MEDS: METOPROLOL TARTRATE 50 MG TABLET (FP) PO SCH (10:02)
== END 2023-12-22 15:16 | disposition home or self-care (01) | DRG 378 ==
LOC: JER 07:37 → JERBED 09:06 → J7W 10:03 → OBSVTOIN 12-19 12:11 → JICU 12-19 15:00 → J5S 12-21 20:15
PROVIDERS: ADMIT Internal Medicine; ATTEND Internal Medicine
PROC: 30233N1 Transfusion of Nonautologous Red Blood Cells into Peripheral Vein, Percutaneous Approach (ICD-10-PCS; 2023-12-19)
PROC: 0DJD8ZZ Inspection of Lower Intestinal Tract, Via Natural or Artificial Opening Endoscopic (ICD-10-PCS; 2023-12-20)
PROC: 0DJ08ZZ Inspection of Upper Intestinal Tract, Via Natural or Artificial Opening Endoscopic (ICD-10-PCS; principal; 2023-12-20 13:30)
DX: K57.91 Diverticulosis of intestine, part unspecified, without perforation or abscess with bleeding (principal); D62 Acute posthemorrhagic anemia; I10 Essential (primary) hypertension; K92.2 Gastrointestinal hemorrhage, unspecified; E78.5 Hyperlipidemia, unspecified; K40.90 Unilateral inguinal hernia, without obstruction or gangrene, not specified as recurrent; N40.0 Benign prostatic hyperplasia without lower urinary tract symptoms; K44.9 Diaphragmatic hernia without obstruction or gangrene; I25.10 Atherosclerotic heart disease of native coronary artery without angina pectoris; K57.90 Diverticulosis of intestine, part unspecified, without perforation or abscess without bleeding; I45.10 Unspecified right bundle-branch block; D64.9 Anemia, unspecified; Z95.5 Presence of coronary angioplasty implant and graft
CPT/HCPCS: 0241U-QW; 36415; 36430; 71045-TC-FY; 74174-TC; 80048; 80053; 82248; 82272; 82728; 83010; 83540; 83550; 83615; 83735; 84100; 84484; 85025; 85610; 85730; 86803; 86850; 86900; 86901; 86922; 87389; 93005; 93010; 93306-TC; 97116-GP; 97161-GP; 99285-25; G0378; J0131; P9058; Q9967

== ENCOUNTER 2024-06-20 09:12 | Inpatient (IN) | payer BC ==
[2024-06-20 10:48] LABS: BASO % 0.5 % (0-2.0); EOS % 4.6 % (0-4.5); HEMATOCRIT 35.8 % (35.4-49); LYMPH % 12.3 % (8-40); MCH 30.9 pg (25.7-33.7); MCHC 33.5 g/dl (32.0-35.9); MEAN CELL VOLUME 92.3 fl (80-96); MEAN PLT VOLUME 8.4 fl (7.5-11.1); MONO % 6.2 % (3.8-10.2); NEUT % 76.4 % (42.8-82.8); PLATELET COUNT 136 10^3/uL (134-434); RBC 3.88 M/mm3 (4.00-5.60); RDW 14.7 % (11.9-15.9); WHITE BLOOD COUNT 8.4 K/mm3 (4.0-10.0)
[2024-06-20 10:57] LABS: INR 1.47 (0.83-1.09); PROTHROMBIN TIME (PATIENT) 16.2 SEC (9.7-13.0)
[2024-06-20 11:00] LABS: ACTIVATED PTT 25.5 SECONDS (25.2-36.5)
[2024-06-20] MEDS ORDERED: METOPROLOL TARTRATE 25 MG TABLET (FP) ONE (11:25)
[2024-06-20] MEDS ORDERED: METOPROLOL TARTRATE 5 MG/5 ML VIAL ONE ×2 (11:25→11:42)
[2024-06-20 11:28] LABS: POTASSIUM 5.4 mmol/L (3.5-5.1)
[2024-06-20 11:31] LABS: CALCIUM 8.7 mg/dL (8.5-10.1)
[2024-06-20 11:33] LABS: BLOOD UREA NITROGEN 17.4 mg/dL (7-18)
[2024-06-20 11:35] LABS: CREATININE 1.3 mg/dL (0.55-1.3)
[2024-06-20 11:37] LABS: BILIRUBIN,TOTAL 1.9 mg/dL (0.2-1); TOT PROT 5.7 g/dl (6.4-8.2)
[2024-06-20] MEDS: METOPROLOL TARTRATE 5 MG/5 ML VIAL IVPUSH ONE ×2 (11:39→11:49)
[2024-06-20] MEDS: METOPROLOL TARTRATE 25 MG TABLET (FP) PO ONE (11:39)
[2024-06-20] MEDS: SODIUM CHLORIDE 0.9% 500 ML INFUS.BAG IV ONE (11:40)
[2024-06-20 13:02] LABS: HIV INTERPRETATION NEGATIVE (NEGATIVE)
[2024-06-20 16:39] VITALS: BMI 30.4
[2024-06-20] MEDS: D5-1/2NS+20 MEQ KCL - 20 MEQ/1,000 ML INFUS.BAG IV SCH (17:06)
[2024-06-20 19:34] LABS: BASO % 0.7 % (0-2.0); EOS % 13.6 % (0-4.5); HEMATOCRIT 33.4 % (35.4-49); HEMOGLOBIN 10.9 GM/dL (11.7-16.9); MCH 30.5 pg (25.7-33.7); MCHC 32.5 g/dl (32.0-35.9); MEAN PLT VOLUME 8.5 fl (7.5-11.1); MONO % 9.6 % (3.8-10.2); NEUT % 54.1 % (42.8-82.8); PLATELET COUNT 131 10^3/uL (134-434); RBC 3.56 M/mm3 (4.00-5.60); RDW 14.6 % (11.9-15.9)
[2024-06-20] MEDS: DEXTROSE 5%-0.45% SALINE 1,000 ML IV SCH (20:42)
[2024-06-20] MEDS: ATORVASTATIN CA 40 MG TABLET (FP) PO SCH (21:06)
[2024-06-20] MEDS: METOPROLOL TARTRATE 5 MG/5 ML VIAL IVPUSH PRN (23:36)
[2024-06-21 07:23] LABS: HEMOGLOBIN 10.3 GM/dL (11.7-16.9); MCH 30.6 pg (25.7-33.7); MCHC 33.1 g/dl (32.0-35.9); MEAN CELL VOLUME 92.5 fl (80-96); MEAN PLT VOLUME 8.5 fl (7.5-11.1); PLATELET COUNT 127 10^3/uL (134-434); RBC 3.35 M/mm3 (4.00-5.60); RDW 14.6 % (11.9-15.9); WHITE BLOOD COUNT 8.1 K/mm3 (4.0-10.0)
[2024-06-21 07:44] LABS: ALBUMIN 2.7 g/dl (3.4-5.0); BLOOD UREA NITROGEN 12.3 mg/dL (7-18); CALCIUM 8.4 mg/dL (8.5-10.1)
[2024-06-21 07:49] LABS: BILIRUBIN,TOTAL 1.1 mg/dL (0.2-1); TOT PROT 5.2 g/dl (6.4-8.2)
[2024-06-21] MEDS: LISINOPRIL 20 MG TABLET PO SCH (09:41)
[2024-06-21 09:50] LABS: ANISOCYTOSIS 0; HELMET CELLS 0; HOWELL-JOLLY BODIES 0; MACROCYTOSIS 0; OVALOCYTE 0; ROULEAU 0; SICKELED CELLS 0; TARGET CELLS 0; TEAR DROP CELLS 0; TOXIC GRANULATION 0
[2024-06-21] MEDS: PANTOPRAZOLE SODIUM 40 MG VIAL IVPUSH SCH (21:56)
[2024-06-22 07:55] LABS: BASO % 0.6 % (0-2.0); HEMATOCRIT 32.6 % (35.4-49); HEMOGLOBIN 10.9 GM/dL (11.7-16.9); LYMPH % 21.1 % (8-40); MCH 30.7 pg (25.7-33.7); MCHC 33.3 g/dl (32.0-35.9); MEAN CELL VOLUME 92.1 fl (80-96); MEAN PLT VOLUME 8.3 fl (7.5-11.1); MONO % 8.8 % (3.8-10.2); NEUT % 49.5 % (42.8-82.8); PLATELET COUNT 128 10^3/uL (134-434); RBC 3.55 M/mm3 (4.00-5.60); RDW 14.9 % (11.9-15.9); WHITE BLOOD COUNT 6.4 K/mm3 (4.0-10.0)
[2024-06-22 08:01] LABS: POTASSIUM 3.7 mmol/L (3.5-5.1)
[2024-06-22 08:07] LABS: CALCIUM 8.5 mg/dL (8.5-10.1)
[2024-06-22 08:08] LABS: ALBUMIN 2.9 g/dl (3.4-5.0); BLOOD UREA NITROGEN 9.5 mg/dL (7-18)
[2024-06-22 08:12] LABS: BILIRUBIN,TOTAL 1.2 mg/dL (0.2-1); TOT PROT 5.6 g/dl (6.4-8.2)
[2024-06-23 07:35] LABS: BASO % 0.7 % (0-2.0); EOS % 12.9 % (0-4.5); HEMATOCRIT 32.7 % (35.4-49); HEMOGLOBIN 11.1 GM/dL (11.7-16.9); LYMPH % 19.9 % (8-40); MCH 31.2 pg (25.7-33.7); MCHC 33.9 g/dl (32.0-35.9); MEAN CELL VOLUME 92.1 fl (80-96); MEAN PLT VOLUME 8.7 fl (7.5-11.1); MONO % 9.1 % (3.8-10.2); NEUT % 57.4 % (42.8-82.8); PLATELET COUNT 137 10^3/uL (134-434); RBC 3.55 M/mm3 (4.00-5.60); RDW 14.4 % (11.9-15.9); WHITE BLOOD COUNT 6.6 K/mm3 (4.0-10.0)
[2024-06-23] MEDS: METOPROLOL TARTRATE 5 MG/5 ML VIAL IVPUSH PRN (07:55)
[2024-06-23 08:28] LABS: BLOOD UREA NITROGEN 10.2 mg/dL (7-18); CALCIUM 8.9 mg/dL (8.5-10.1)
[2024-06-23 08:32] LABS: CREATININE 1.1 mg/dL (0.55-1.3)
[2024-06-23 08:33] LABS: BILIRUBIN,TOTAL 1.2 mg/dL (0.2-1); TOT PROT 5.8 g/dl (6.4-8.2)
[2024-06-23] MEDS: CLOPIDOGREL BISULFATE 75 MG TABLET (FP) PO SCH (12:16)
[2024-06-24 06:56] LABS: BASO % 0.8 % (0-2.0); EOS % 13.2 % (0-4.5); HEMATOCRIT 32.7 % (35.4-49); HEMOGLOBIN 10.7 GM/dL (11.7-16.9); LYMPH % 19.7 % (8-40); MCH 30.5 pg (25.7-33.7); MCHC 32.9 g/dl (32.0-35.9); MEAN CELL VOLUME 92.8 fl (80-96); MEAN PLT VOLUME 8.4 fl (7.5-11.1); MONO % 8.5 % (3.8-10.2); NEUT % 57.8 % (42.8-82.8); PLATELET COUNT 146 10^3/uL (134-434); RBC 3.52 M/mm3 (4.00-5.60); RDW 14.5 % (11.9-15.9); WHITE BLOOD COUNT 6.6 K/mm3 (4.0-10.0)
[2024-06-24] MEDS: PANTOPRAZOLE 40 MG TABLET PO SCH (09:56)
[2024-06-25 03:25] VITALS: RESP 18
[2024-06-25 11:14] VITALS: BP 125/85; PULSE 98; TEMP 98.2
== END 2024-06-25 18:00 | disposition home or self-care (01) | DRG 379 ==
LOC: JER 09:12 → JERBED 12:23 → J4W 14:18 → OBSVTOIN 15:33
PROVIDERS: ADMIT Internal Medicine; ATTEND Internal Medicine
DX: K62.5 Hemorrhage of anus and rectum (principal); I48.91 Unspecified atrial fibrillation; Z79.01 Long term (current) use of anticoagulants; I25.10 Atherosclerotic heart disease of native coronary artery without angina pectoris; K57.31 Diverticulosis of large intestine without perforation or abscess with bleeding
CPT/HCPCS: 36415; 80053; 80061; 82272; 83036; 83735; 84439; 84443; 84484; 85025; 85610; 85730; 86803; 86850; 86900; 86901; 87389; 93005; 93010; 99285-25; G0378